=== PATIENT | male | born 1965 | race Caucasian/White ===

== ENCOUNTER 2020-10-13 10:31 | Emergency (ER) | payer OTHER ==
[~2020-10-13 10:31] MED LIST: ANTACID ANTI-G355 ML PO; BENTYL 10MG CAP10 MG PO; DULOXETINE HCL60 MG PO; FLEXERIL 10 MG10 MG PO; IBUPROFEN400 MG PO; NAPROSYN500 MG PO; SINEQUAN CAP 5050 MG PO; VISTARIL25 MG PO
== END 2020-10-13 12:31 | disposition left against medical advice (07) ==
LOC: ER1 10:31
DX: R59.0 Localized enlarged lymph nodes (principal); Z53.21 Procedure and treatment not carried out due to patient leaving prior to being seen by health care provider

== ENCOUNTER 2020-10-16 13:16 | Emergency (ER) | payer OTHER ==
[2020-10-16 14:19] LABS: HEMOGLOBIN 13.9 gm/dl (14.0-17.5); RED BLOOD COUNT 4.4 M/UL (4.20-5.50); WHITE BLOOD COUNT 6.8 K/UL (4.5-11.0)
[2020-10-16 15:36] LABS: BUN/CREATININE RATIO 17 (0-10)
[2020-10-16] MEDS ORDERED: LO-DOSE ASPIRIN81 MG PO (16:08)
== END 2020-10-16 16:06 | disposition left against medical advice (07) ==
LOC: ER1 13:16
PROVIDERS: Physician Assistant Medical
DX: R07.89 Other chest pain (principal); K21.9 Gastro-esophageal reflux disease without esophagitis; Z90.89 Acquired absence of other organs; Z88.0 Allergy status to penicillin; Z79.899 Other long term (current) drug therapy
CPT/HCPCS: 36415; 71045; 80053; 82550; 82553; 83874; 84484; 85025; 93005; 99285